=== PATIENT | male | born 1970 | race Caucasian/White ===

== ENCOUNTER 2023-05-13 13:37 | Outpatient (CLI) | payer BC, SELFPAY | END 2023-05-13 13:38 | disposition home or self-care (01) | PROVIDERS: PCP Internal Medicine; Visit Provider Internal Medicine | DX: Z00.00 Encounter for general adult medical examination without abnormal findings (principal); Z13.6 Encounter for screening for cardiovascular disorders; Z12.5 Encounter for screening for malignant neoplasm of prostate; Z13.9 Encounter for screening, unspecified | CPT/HCPCS: 80053; 80061; G0103 ==

== ENCOUNTER 2023-07-10 07:37 | Outpatient (CLI) | payer BC, SELFPAY ==
--- NOTE | 2023-07-10 08:27 | W.ANESCHARGE ---
Anesthesia Charges Start Date/Time Anesthesia Start Date: 07/10/23 Anesthesia Start Time: 08:03 Stop Date/Time Anesthesia Stop Date: 07/10/23 Anesthesia Stop Time: 08:25
--- NOTE | 2023-07-10 08:53 | W.ANESCHARGE ---
Anesthesia Charges Start Date/Time Anesthesia Start Date: 07/10/23 Anesthesia Start Time: 08:03 Stop Date/Time Anesthesia Stop Date: 07/10/23 Anesthesia Stop Time: 08:25
== END 2023-07-10 07:38 | disposition home or self-care (01) ==
LOC: OP CLINIC 07:38
PROVIDERS: PCP Internal Medicine; Visit Provider Internal Medicine
DX: Z12.11 Encounter for screening for malignant neoplasm of colon (principal)
CPT/HCPCS: 00811; 00812; 45378; J2704

== ENCOUNTER 2025-02-07 08:00 | Outpatient (CLI) | payer BC, SELFPAY | END 2025-02-07 08:01 | disposition home or self-care (01) | LOC: NFLDREF 02-09 12:51 | PROVIDERS: PCP Internal Medicine; Referring Provider Internal Medicine; Visit Provider Internal Medicine | DX: I10 Essential (primary) hypertension (principal) | CPT/HCPCS: 80053; 80061; G0103 ==